=== PATIENT | female | born 1960 | race Caucasian/White ===

== ENCOUNTER → 2021-01-23 13:59 | Outpatient (BNVA) | payer BC, SELFPAY | PROVIDERS: Visit Provider Family Medicine | DX: E11.9 Type 2 diabetes mellitus without complications (principal); E78.00 Pure hypercholesterolemia, unspecified; J44.9 Chronic obstructive pulmonary disease, unspecified; I10 Essential (primary) hypertension | CPT/HCPCS: 80053; 80061; 83036; 85025 ==

== ENCOUNTER 2021-04-24 13:14 | Outpatient (CLI) | payer MEDICAID, SELFPAY ==
--- NOTE | 2021-04-24 13:30 | USCV_ITS ---
Sanaz Mendez Age: 60 Gender: F : 1960 Exam Date: 04/24/2021 13:29 Ordering Phys: Enoc Moyer MD ([email or web address]) Technologist: Exam Location: [facility] [place] Indication: CHEST PAIN BP: 130 / 70 HR: 69 Rhythm: Sinus Technical Quality: Adequate MEASUREMENTS (Male / Female) Normal Values 2D ECHO LV Diastolic Diameter PLAX 3.2 cm 4.2 - 5.9 / 3.9 - 5.3 cm LV Systolic Diameter PLAX 1.7 cm IVS Diastolic Thickness 0.9 cm 0.6 - 1.0 / 0.6 - 0.9 cm IVS Systolic Thickness 1.3 cm LVPW Diastolic Thickness 1.0 cm 0.6 - 1.0 / 0.6 - 0.9 cm LVPW Systolic Thickness 1.2 cm LVOT Diameter 2.0 cm LV Ejection Fraction 2D Teich 74.4 % LV Ejection Fraction MOD 2C 66.5 % LV Ejection Fraction 2C AL 64.7 % LA Diameter 3.1 cm Aorta at Sinotubular Diameter 2.4 cm M-MODE Aortic Annulus Diameter 2.8 cm LA Ao Ratio MM 1.1 MV E Point Septal Separation 1.0 cm DOPPLER AV Peak Velocity 127.0 cm/s LVOT Peak Velocity 97.0 cm/s AV Area Cont Eq vti 2.2 cm squared AV Area Cont Eq pk 2.3 cm squared MV Area PHT 5.0 cm squared Mitral E to A Ratio 1.0 MV E' Velocity 47.0 cm/s Mitral E to MV E' Ratio 11.2 Mitral E to LV E' Lateral Ratio 10.0 Mitral E to LV E' Septal Ratio 12.9 TR Peak Velocity 146.3 cm/s TR Peak Gradient 8.6 mmHg TV Peak E Velocity 99.0 cm/s Right Atrial Pressure 3.0 mmHg Pulmonary Artery Systolic Pressu 11.6 mmHg PV Peak Velocity 87.0 cm/s RV Acceleration Time 0.1 s FINDINGS Left Ventricle Normal left ventricular size. LV systolic function is normal with EF of 55-60%. No regional wall motion abnormalities. Normal diastolic filling pattern. Right Ventricle The right ventricle is normal in size and function. Right Atrium The right atrium is normal in size. Left Atrium The left atrium is normal in size. Mitral Valve Structurally normal mitral valve without significant stenosis or prolapse. There is trace mitral regurgitation. Aortic Valve Aortic valve is not well visualized. No significant stenosis. There is no aortic regurgitation. Tricuspid Valve Structurally normal tricuspid valve without significant stenosis. Trace tricuspid regurgitation. Insufficient TR jet to calculate RVSP Pulmonic Valve Not well visualized Pericardium Normal pericardium without effusion. Aorta Normal ascending aorta dimension. CONCLUSIONS LV systolic function is normal with EF of 55-60% Normal diastolic function Trace mitral regurgitation Trace tricuspid regurgitation No comparison studies are available Max Clarke MD (Electronically Signed) Final Date: 02 May 2021 11:57 S
--- NOTE | 2021-04-24 14:15 | USCV_ITS ---
Sanaz Mendez Age: 60 Gender: F : 1960 Exam Date: 04/24/2021 13:26 Ordering Phys: Enoc Moyer MD ([email or web address]) Technologist: Exam Location: [facility] [place] Indication: PAD RIGHT LEFT Brachial 133.00 mmHg Brachial 137.00 mmHg Pressure (mmHg) Waveform Pressure (mmHg) Waveform 169.00 Above Knee 168.00 193.00 Below Knee 164.00 140.00 [employer] 153.00 171.00 DPA 136.00 1.20 Ankle/Brachial Index 1.10 56.00 Pre-Exercise Toe Pressure 62.00 Pre-Exercise Toe/Brachial Index 0.45 0.41 FINDINGS Normal resting ABIs bilaterally Diminished resting TBI bilaterally PVR waveforms showing some blunting of the dicrotic notch CONCLUSIONS Abnormal resting TBIs and PVR waveforms with a normal resting ABIs bilaterally suggesting mild peripheral artery disease, involving the distal vessels bilaterally. Dr Poncho Merino MD [facility] (Electronically Signed) Final Date: 29 April 2021 19:54 S
== END 2021-04-24 13:15 | disposition home or self-care (01) ==
LOC: RAD 13:15
PROVIDERS: PCP Family Medicine; Visit Provider Internal Medicine Cardiovascular Disease
DX: I73.9 Peripheral vascular disease, unspecified (principal); R06.02 Shortness of breath; Z95.1 Presence of aortocoronary bypass graft; I08.1 Rheumatic disorders of both mitral and tricuspid valves
CPT/HCPCS: 83036; 93306; 93923

== ENCOUNTER → 2021-05-20 15:24 | Outpatient (BNVA) | payer MEDICAID, SELFPAY | PROVIDERS: PCP Family Medicine; Visit Provider Family Medicine | DX: M48.00 Spinal stenosis, site unspecified (principal) | CPT/HCPCS: 72100 ==

== ENCOUNTER → 2021-08-26 15:19 | Outpatient (BNVA) | payer MEDICAID, SELFPAY | PROVIDERS: PCP Family Medicine; Visit Provider Family Medicine | DX: M62.830 Muscle spasm of back (principal); I10 Essential (primary) hypertension; K21.9 Gastro-esophageal reflux disease without esophagitis; T78.40XA Allergy, unspecified, initial encounter; J44.9 Chronic obstructive pulmonary disease, unspecified; E11.40 Type 2 diabetes mellitus with diabetic neuropathy, unspecified; R60.0 Localized edema; F32.A Depression, unspecified; F41.9 Anxiety disorder, unspecified; E78.00 Pure hypercholesterolemia, unspecified; E11.42 Type 2 diabetes mellitus with diabetic polyneuropathy; M54.50 Low back pain, unspecified; G89.29 Other chronic pain; F33.1 Major depressive disorder, recurrent, moderate | CPT/HCPCS: 80053; 83036 ==

== ENCOUNTER → 2021-12-03 11:54 | Outpatient (BNVA) | payer MEDICARE, MEDICAID, SELFPAY | PROVIDERS: PCP Family Medicine; Visit Provider Family Medicine | DX: M62.830 Muscle spasm of back (principal); E11.42 Type 2 diabetes mellitus with diabetic polyneuropathy; K21.9 Gastro-esophageal reflux disease without esophagitis; I10 Essential (primary) hypertension; T78.40XA Allergy, unspecified, initial encounter; J44.9 Chronic obstructive pulmonary disease, unspecified; E11.40 Type 2 diabetes mellitus with diabetic neuropathy, unspecified; F32.A Depression, unspecified; F41.9 Anxiety disorder, unspecified; E78.00 Pure hypercholesterolemia, unspecified; Z23 Encounter for immunization; R60.0 Localized edema; J41.0 Simple chronic bronchitis | CPT/HCPCS: 80053; 80061; 83036 ==

== ENCOUNTER → 2022-02-05 13:53 | Outpatient (BNVA) | payer MEDICARE, MEDICAID, SELFPAY | PROVIDERS: PCP Family Medicine; Visit Provider Family Medicine | DX: E11.42 Type 2 diabetes mellitus with diabetic polyneuropathy (principal); F41.9 Anxiety disorder, unspecified; R60.0 Localized edema; I10 Essential (primary) hypertension; M62.830 Muscle spasm of back; M54.12 Radiculopathy, cervical region; M54.50 Low back pain, unspecified; G89.29 Other chronic pain | CPT/HCPCS: 80048; 83036 ==

== ENCOUNTER → 2022-05-29 09:22 | Outpatient (BNVA) | payer MEDICARE, MEDICAID, SELFPAY | PROVIDERS: PCP Family Medicine; Visit Provider Family Medicine | DX: I10 Essential (primary) hypertension (principal); M62.830 Muscle spasm of back; K21.9 Gastro-esophageal reflux disease without esophagitis; T78.40XA Allergy, unspecified, initial encounter; J44.9 Chronic obstructive pulmonary disease, unspecified; F32.A Depression, unspecified; R60.0 Localized edema; F41.9 Anxiety disorder, unspecified; E78.00 Pure hypercholesterolemia, unspecified; E11.9 Type 2 diabetes mellitus without complications | CPT/HCPCS: 80053; 83036 ==

== ENCOUNTER → 2022-08-26 09:09 | Outpatient (BNVA) | payer MEDICARE, MEDICAID, SELFPAY | PROVIDERS: PCP Family Medicine; Visit Provider Family Medicine | DX: E11.42 Type 2 diabetes mellitus with diabetic polyneuropathy (principal); R53.83 Other fatigue; G47.33 Obstructive sleep apnea (adult) (pediatric); G47.10 Hypersomnia, unspecified | CPT/HCPCS: 80048; 83036; 84443; 85025 ==

== ENCOUNTER → 2024-03-17 14:35 | Outpatient (BNVA) | payer MEDICARE, MEDICAID, SELFPAY | PROVIDERS: PCP Nurse Practitioner Family; Visit Provider Internal Medicine Cardiovascular Disease | DX: I25.10 Atherosclerotic heart disease of native coronary artery without angina pectoris (principal); R06.02 Shortness of breath; I10 Essential (primary) hypertension; I73.9 Peripheral vascular disease, unspecified; E78.5 Hyperlipidemia, unspecified; Z72.0 Tobacco use | CPT/HCPCS: 99214 ==